=== PATIENT | male | born 1955 | race Hispanic/Latino ===

== ENCOUNTER 2016-07-10 15:21 | Emergency (ER) | payer OTHER ==
[2016-07-10 15:44] LABS: Urine Drugs of Abuse Note Disclamer
[2016-07-10 15:57] LABS: Bilirubin,Urine NEG (Negative); Blood,Urine LG (Negative); Ketones,Urine NEG (Negative); Leukocyte Esterase,Urine NEG (Negative); Mucus,Urine FEW /HPF; Nitrite,Urine NEG (Negative); Urobilinogen,Urine < 2.0 mg/dL (<2.0)
--- NOTE | 2016-07-10 16:14 | Emergency Department Report ---
HPI - General Chief Complaint: Overdose Time Seen by Provider: 07/10/16 15:56 - HPI HPI: This is a 61-year-old male who presents to the emergency department by EMS from home after the patient took at least 5 Ambien, mixed with [place] Escamilla, with the intent of harming himself. He texted his son and daughter and said goodbye and admitted that he was trying to harm himself. The patient is currently drowsy with some slurred speech and is a poor historian. There is no diagnosed psychiatric history. The patient has been retired for a few years and the son says that he has been dealing with a girlfriend leaving him and he has "has too much time to think about it." The son says that the patient has some past medical history of cancer "somewhere." He also has a history of alcohol abuse and was considered to be an alcoholic in the past but may still drink daily, they are unsure. The previous alcohol abuse is low to some "liver problems." ED Past Medical Hx - Past Medical History Additional medical history: IRVIN - Surgical History Additional Surgical History: IRVIN - Social History Smoking Status: Current Every Day Smoker Substance Use Type: Alcohol - Medications Home Medications: Home Medications Medication Instructions Recorded Confirmed Last Taken Type Zolpidem [Ambien] 10 mg PO QHS 07/10/16 07/10/16 07/10/16 History ED Review of Systems ROS: Stated complaint: OVERDOSE Other details as noted in HPI Comment: All other systems reviewed and negative Constitutional: other (drowsy). denies: chills, fever Eyes: denies: eye pain, eye discharge, vision change ENT: denies: ear pain, throat pain Respiratory: denies: cough, shortness of breath, wheezing Cardiovascular: denies: chest pain, palpitations Gastrointestinal: denies: abdominal pain, nausea, diarrhea Genitourinary: denies: urgency, dysuria Musculoskeletal: denies: back pain, joint swelling, arthralgia Skin: denies: rash, lesions Neurological: confusion. denies: headache, weakness, paresthesias Physical Exam - Physical Exam Vital Signs: Vital Signs 07/10/16 07/10/16 07/10/16 15:16 15:17 15:18 Pulse Rate 88 89 Respiratory 12 24 Rate Blood Pressure 116/73 116/73 116/73 O2 Sat by Pulse 96 96 97 Oximetry 07/10/16 07/10/16 07/10/16 15:20 15:22 15:24 Pulse Rate 88 88 87 Respiratory 24 15 9 L Rate Blood Pressure O2 Sat by Pulse 97 97 98 Oximetry 07/10/16 07/10/16 07/10/16 15:26 15:28 15:30 Pulse Rate 87 91 H 91 H Respiratory 24 12 18 Rate Blood Pressure 107/75 O2 Sat by Pulse 97 97 95 Oximetry 07/10/16 07/10/16 07/10/16 15:32 15:34 15:36 Pulse Rate 89 90 90 Respiratory 15 24 19 Rate Blood Pressure 107/75 107/75 107/75 O2 Sat by Pulse 96 97 97 Oximetry 07/10/16 07/10/16 07/10/16 15:38 15:40 15:48 Pulse Rate 92 H 93 H Respiratory 26 H 22 22 Rate Blood Pressure 107/75 107/75 O2 Sat by Pulse 91 96 96 Oximetry Physical Exam: GENERAL: The patient appears drowsy versus intoxicated. HEENT: Normocephalic. Atraumatic. Extraocular motions are intact. Patient has moist mucous membranes. Pupils equal reactive to light. NECK: Supple. Trachea is midline. CHEST/LUNGS: Clear to auscultation. There is no respiratory distress noted. HEART/CARDIOVASCULAR: Regular. There is no tachycardia. There is no gallop rub or murmur. ABDOMEN: Abdomen is soft, nontender. Patient has normal bowel sounds. There is no abdominal distention. SKIN: There is no rash. There is no edema. There is no diaphoresis. NEURO: Patient is awake but appears confused versus intoxicated. There is some slurring of his speech. Patient unable to answer all of his questions. Withdraws to painful stimuli. Follows some commands. MUSCULOSKELETAL: There is no tenderness or deformity. There is no limitation range of motion. There is no evidence of acute injury. ED Course Vital Signs 07/10/16 07/10/16 07/10/16 15:16 15:17 15:18 Pulse Rate 88 89 Respiratory 12 24 Rate Blood Pressure 116/73 116/73 116/73 O2 Sat by Pulse 96 96 97 Oximetry 07/10/16 07/10/16 07/10/16 15:20 15:22 15:24 Pulse Rate 88 88 87 Respiratory 24 15 9 L Rate Blood Pressure O2 Sat by Pulse 97 97 98 Oximetry 07/10/16 07/10/16 07/10/16 15:26 15:28 15:30 Pulse Rate 87 91 H 91 H Respiratory 24 12 18 Rate Blood Pressure 107/75 O2 Sat by Pulse 97 97 95 Oximetry 07/10/16 07/10/16 07/10/16 15:32 15:34 15:36 Pulse Rate 89 90 90 Respiratory 15 24 19 Rate Blood Pressure 107/75 107/75 107/75 O2 Sat by Pulse 96 97 97 Oximetry 07/10/16 07/10/16 07/10/16 15:38 15:40 15:48 Pulse Rate 92 H 93 H Respiratory 26 H 22 22 Rate Blood Pressure 107/75 107/75 O2 Sat by Pulse 91 96 96 Oximetry - Reevaluation(s) Reevaluation #1: The patient had an episode earlier in which he got up in his room, pulled out his IV, cough all of his clothes, exposed himself to staff but then was able to be redirected. He was cleaned up and a new IV was placed so he could receive IV fluids and thiamine and multivitamins. Patient was reevaluated again around 9:00 and the patient is much more awake and alert. He has normal understandable nonslurred speech and is seen walking around in his room and appears stable. At this point the patient appears to have sobered up from his alcohol intoxication and is wanting to leave the hospital. I told the patient that he had sent messages to his son and daughter stating that he plan to harm himself. He says that he only took 1 Ambien. I told him that the amount of Ambien was not the reason for his 1013 status but his intent to harm himself. The patient appears now to understand that he will have to remain in the hospital until he is either seen and cleared by one of the psychiatrists or he gets transferred to a psychiatric facility. 07/10/16 23:19 ED Medical Decision Making - Lab Data Result diagrams: 07/10/16 15:51 07/10/16 15:51 - EKG Data -: EKG Interpreted by Me EKG shows normal: sinus rhythm, axis, intervals, QRS complexes (Q waves to the septal leads), ST-T waves Rate: normal - EKG Data When compared to previous EKG there are: previous EKG unavailable Interpretation: other (Q waves to the septal leads) - Radiology Data Radiology results: report reviewed CT of the head does not show any acute process including no hemorrhage, mass, shift, diffuse edema or skull fracture. - Medical Decision Making 61-year-old male presents to the emergency department after texting family saying that he was going to overdose on Ambien, mixed with alcohol. The patient does have a history of alcohol abuse. He presents with some altered mental status and slurred speech and is a poor historian at first. The son was bedside and says that he received the text message. The patient had labs and a CT of the head done. CT did not show any bleed, shift, mass or any acute process. The labs were mostly unremarkable except for a blood alcohol level of 0.2. At one point the patient tore out his IV and removed all of his clothes and was acting appropriate. He was able to be redirected, he was cleaned up, given a new IV. A few hours after this, the patient appeared much more sober. He no longer had any slurred speech. He was seen ambulatory in the emergency department and appeared stable. However at this point the patient did not want to be in the emergency department any longer and did not understand why we would not discharge him. I explained to him the concern for his well-being secondary to his previous suicidal threats and/or ideations and that he has been made a 1013. The rest of the patient's labs are unremarkable. Vital signs been stable throughout his ED course. At this point the patient is medically cleared for psychiatric placement and crisis therapist has been contacted to assist. - Differential Diagnosis alcohol intoxication, depression, schizophrenia, bipolar Critical Care Time: No Critical care attestation.: If time is entered above; I have spent that time in minutes in the direct care of this critically ill patient, excluding procedure time. ED Disposition Clinical Impression: Suicidal ideations Alcohol intoxication Qualifiers: Complication of substance-induced condition: uncomplicated Qualified Code(s): F10.920 - Alcohol use, unspecified with intoxication, uncomplicated Disposition: DC/TX PSY HOSP/PSY UNIT Is pt being admited?: No Condition: Stable Referrals: PRIMARY CARE, [Primary Care Provider] - 3-5 Days Time of Disposition: 00:16
[2016-07-10 16:22] LABS: Basophils % (Auto) 0.5 % (0.0-1.8); Eosinophils % (Auto) 3.6 % (0.0-4.3); Hematocrit 43.3 % (35.5-45.6); Hemoglobin 14.6 gm/dl (11.8-15.2); Mean Corpuscular HGB Conc 34 % (32-34); Mean Corpuscular Hemoglobin 34 pg (28-32); Mean Corpuscular Volume 101 fl (84-94); Platelet Count 132 K/mm3 (140-440); White Blood Count 6.5 K/mm3 (4.5-11.0)
[2016-07-10 16:29] LABS: Anion Gap 19 mmol/L; BUN/Creatinine Ratio 31.66; Blood Urea Nitrogen 19 mg/dL (9-20); Calcium 9.2 mg/dL (8.4-10.2); Carbon Dioxide 25 mmol/L (22-30); Chloride 106.3 mmol/L (98-107); Glucose 88 mg/dL (75-100); Potassium 4.2 mmol/L (3.6-5.0); Sodium 146 mmol/L (137-145)
[2016-07-10 16:59] LABS: Alanine Aminotransferase 28 units/L (7-56); Albumin 4.1 g/dL (3.9-5); Albumin/Globulin Ratio 1.3 %; Alkaline Phosphatase 106 units/L (35-129); Bilirubin,Direct < 0.2 mg/dL (0-0.2); Total Protein 7.3 g/dL (6.3-8.2)
[2016-07-10] MEDS ORDERED: VITAMIN B-1 100 MG, FOLVITE 1 MG, INFUVITE 10 ML in NACL 0.9% 1000 ML 1,000 ML IV ONE (17:56)
--- NOTE | 2016-07-10 23:48 | Cat Scan Report ---
FINAL REPORT PROCEDURE: CT HEAD/BRAIN WO CON TECHNIQUE: Computerized tomography of the head was performed without contrast material. HISTORY: AMS COMPARISON: No prior studies are available for comparison. FINDINGS: Skull and scalp: Normal. Paranasal sinuses: Normal. Ventricles and subarachnoid spaces: There is mild central and cortical atrophy. There is no hydrocephalus or asymmetry.. Cerebrum: No evidence of hemorrhage, acute infarction or mass . Cerebellum and brainstem: No evidence of hemorrhage, acute infarction or mass. Vasculature: Normal. Comments: None. IMPRESSION: There is no acute intracranial abnormality.
[2016-07-11 07:31] VITALS: BP 135/66
== END 2016-07-11 07:31 ==
LOC: ED 15:21 → EEVIPCON 15:21 → ED 07-11 07:31
DX: R45.851 Suicidal ideations (principal); F10.920 Alcohol use, unspecified with intoxication, uncomplicated; F17.200 Nicotine dependence, unspecified, uncomplicated
CPT/HCPCS: 36415; 70450; 80048; 80074; 80307; 81001; 84443; 84484; 85025; 93005; 93010; 96365; 96366; 99285; G0480; J3411; J7030; 80320

== ENCOUNTER 2016-08-21 12:50 | Observation (INO) | payer OTHER ==
[~2016-08-21 12:50] MED LIST: ANCEF/STERILE WATER 2 GM/20 ML 2 GM/20 ML SYRINGE IV NR
--- NOTE | 2016-08-21 13:54 | Anesthesia Consultation ---
Anesthesia Consult and Med Hx Date of service: 08/21/16 - Airway Anesthetic Teeth Evaluation: Edentulous ROM Head & Neck: Adequate Mental/Hyoid Distance: Adequate Mallampati Class: Class I Intubation Access Assessment: Good - Pulmonary Exam CTA: Yes - Cardiac Exam Cardiac Exam: RRR - Pre-Operative Health Status ASA Pre-Surgery Classification: ASA3 Proposed Anesthetic Plan: General - Pre-Anesthesia Comment Pre-Anesthesia Comments: 2/6 systolic murmur - Pulmonary Hx Smoking: Yes (1 PPD X 45 YRS) Hx Sleep Apnea: No (GILMAR PRE SCREEN HIGH RISK) - Cardiovascular System Hx Hypertension: No Hx Coronary Artery Disease: No Hx Angina: No - Central Nervous System Hx Psychiatric Problems: Yes (SUCIDE ATTEMPT 07/10/16 WITH OVERDOSE) - Endocrine Hx Insulin Dependent Diabetes: No Hx Non-Insulin Dependent Diabetes: No - Hematic Hx Anemia: Yes (NOT RECENT) - Other Systems Hx Alcohol Use: Yes (ALCOHOL ABUSE- STILL DRINKING) 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 Echo shows mod to severe mitral regurgitation. Prior cath was negative for CAD.
--- NOTE | 2016-08-21 13:55 | Anesthesia Day of Surgery ---
Anesthesia Day of Surgery - Day of Surgery Patient Examined: Yes Patient H&P Reviewed: Yes Patient is NPO: Yes Cardiac Clearance: Yes
[2016-08-21] MEDS ORDERED: LACTATED RINGERS 1,000 ML IV SCH (14:00)
[2016-08-21] MEDS ORDERED: VERSED IV NR (14:00)
[2016-08-21] MEDS ORDERED: PEPCID PO NR (14:00)
[2016-08-21] MEDS ORDERED: PERCOCET 5/325 PO PRN ×2 (14:01→14:47)
[2016-08-21] MEDS ORDERED: ZOFRAN IV PRN ×2 (14:01→14:47)
[2016-08-21 14:03] LABS: Eosinophils % (Auto) 8.1 % (0.0-4.3); Mean Corpuscular HGB Conc 33 % (32-34); Mean Corpuscular Hemoglobin 34 pg (28-32); Mean Corpuscular Volume 103 fl (84-94); Platelet Count 110 K/mm3 (140-440); Red Blood Count 4.09 M/mm3 (3.65-5.03); Red Cell Distribution Width 14.1 % (13.2-15.2); White Blood Count 4.2 K/mm3 (4.5-11.0)
[2016-08-21] MEDS ORDERED: XYLOCAINE MPF 2% ONE (14:38)
[2016-08-21] MEDS ORDERED: DIPRIVAN 10 MG/ML IV ONE (14:38)
[2016-08-21] MEDS ORDERED: SUBLIMAZE ONE (14:38)
[2016-08-21 14:40] LABS: Anion Gap TNR mmol/L; BUN/Creatinine Ratio TNR; Blood Urea Nitrogen TNR mg/dL (9-20); Carbon Dioxide TNR mmol/L (22-30); Chloride TNR mmol/L (98-107); Potassium TNR mmol/L (3.6-5.0); Sodium TNR mmol/L (137-145)
[2016-08-21 14:41] LABS: Alanine Aminotransferase TNR units/L (7-56); Albumin TNR g/dL (3.9-5); Albumin/Globulin Ratio TNR %; Alkaline Phosphatase TNR units/L (35-129); Bilirubin,Total TNR mg/dL (0.1-1.2); Calcium TNR mg/dL (8.4-10.2); Glucose TNR mg/dL (75-100); Total Protein TNR g/dL (6.3-8.2)
[2016-08-21] MEDS ORDERED: NACL 0.9% IR PRN (14:47)
[2016-08-21] MEDS ORDERED: AMBIEN PO PRN (14:47)
--- NOTE | 2016-08-21 14:47 | Post Operative Note ---
Date of procedure: 08/21/16 Pre-op diagnosis: hematuria bladder cancer Post-op diagnosis: same Findings: Large tumor Procedure: Operative note Preoperative diagnosis bladder tumor Postoperative diagnosis the same Procedure Cystoscopy retrograde. There is resection of multifocal bladder tumors Surgeon Dr Nanda Fang. Findings This is a patient who presented with gross hematuria and clots. He had a mass on CT scan Procedure Patient brought to the operating room placed on the operating table. Following the induction of anesthesia placed in lithotomy position prepped and appears to fashion. Cystoscopy showed a multifocal tumors throughout the posterior and lateral wall of the bladder. The trigone was spared. The bladder was 2-3+ trabeculated retrograde showed some narrowing with the vessels were crossing but on fluoroscopy and did not see a persistent filling defect. It was some questionable area at the junction of the mid and distal right ureter. At that point we filled it up more and it looked like it drained freely. The resectoscope 24 Japanese was inserted Tumor anterior wall was resected. This was resected down to capsular fibers as noted on cystoscopy. The large tumor was removed and then smaller tumors were circumferentially resected. Hemostasis was excellent. Patient procedure welland bleeding estimated blood loss less than 50 mL Per to recovery room with a 22 three-way catheter stable condition thank you Anesthesia: TONEA Surgeon: MANDIE VALE Estimated blood loss: 50-100ml Pathology: list (bladder) Specimen disposition: to lab Condition: stable Disposition: PACU
[2016-08-21] MEDS ORDERED: D5W/0.45% NACL/KCL 20 MEQ 20 MEQ/1,000 ML BAG IV SCH (15:00)
[2016-08-21 15:17] LABS: Alanine Aminotransferase 21 units/L (7-56); Albumin 3.4 g/dL (3.9-5); Albumin/Globulin Ratio 1.5 %; Alkaline Phosphatase 98 units/L (35-129); Anion Gap 15 mmol/L; Blood Urea Nitrogen 17 mg/dL (9-20); Calcium 7.9 mg/dL (8.4-10.2); Carbon Dioxide 23 mmol/L (22-30); Chloride 101.1 mmol/L (98-107); Glucose 90 mg/dL (75-100); Potassium 3.9 mmol/L (3.6-5.0); Sodium 135 mmol/L (137-145); Total Protein 5.6 g/dL (6.3-8.2)
[2016-08-21] MEDS ORDERED: DECADRON ONE (15:23)
[2016-08-21] MEDS ORDERED: ZOFRAN ONE (15:23)
[2016-08-21] MEDS ORDERED: ePHEDrine SULFATE ONE (15:44)
[2016-08-21] MEDS ORDERED: WATER FOR IRRIG STERILE IR ONE (16:48)
[2016-08-21] MEDS ORDERED: SORBITOL-MANNITOL IRRIG IR ONE (16:48)
[2016-08-21] MEDS: DILAUDID IV PRN ×2 (17:00→17:18)
--- NOTE | 2016-08-21 17:57 | Post Anesthesia Evaluation ---
- Post Anesthesia Evaluation Patient Participated: Yes Airway Patent: Yes Stable Respiratory Function: Yes Nausea/Vomiting: No Temp > 96.8F: Yes Pain Manageable: Yes Adequeate Hydration: Yes Anesthesia Complications: No
[2016-08-21] MEDS ORDERED: NACL 0.9% 2,000 ML ONE ×2 (18:55)
[2016-08-21] MEDS ORDERED: AMBIEN PO SCH (22:00)
[2016-08-21] MEDS: ANCEF/NS 1 GM/50 ML 1 GM/50 ML BAG IV SCH (22:42)
[2016-08-21] MEDS: COLACE PO SCH (22:42)
[2016-08-21] MEDS: NACL 0.9% IR SCH (22:50)
[2016-08-22] MEDS: NACL 0.9% IR SCH (05:01)
[2016-08-22] MEDS: ANCEF/NS 1 GM/50 ML 1 GM/50 ML BAG IV SCH (05:54)
[2016-08-22 06:29] LABS: Basophils % (Auto) 0.1 % (0.0-1.8); Eosinophils % (Auto) 0.2 % (0.0-4.3); Hematocrit 38.3 % (35.5-45.6); Hemoglobin 12.6 gm/dl (11.8-15.2); Mean Corpuscular HGB Conc 33 % (32-34); Mean Corpuscular Hemoglobin 34 pg (28-32); Mean Corpuscular Volume 102 fl (84-94); Platelet Count 111 K/mm3 (140-440); Red Blood Count 3.76 M/mm3 (3.65-5.03); White Blood Count 9.2 K/mm3 (4.5-11.0)
[2016-08-22 06:39] LABS: Anion Gap 15 mmol/L; Blood Urea Nitrogen 21 mg/dL (9-20); Calcium 8.5 mg/dL (8.4-10.2); Carbon Dioxide 25 mmol/L (22-30); Chloride 98.3 mmol/L (98-107); Glucose 158 mg/dL (75-100); Potassium 4.7 mmol/L (3.6-5.0); Sodium 134 mmol/L (137-145)
--- NOTE | 2016-08-22 07:33 | Admit Criteria Form ---
Admission Criteria Documentation: AMBULATORY SURGERY EXCEPTION CRITERIA Ambulatory Surgery Exception Criteria ( Place 'X' for any and all applicable criteria): Surgery or procedure performed on ambulatory basis may require inpatient stay for[A] ANY ONE of the following(1)(2)(3)(4)(5)(6)(7)(8)(9): [X] I. A preoperative situation, condition, or finding that warrants inpatient stay as indicated by ANY ONE of the following: [] a) Inpatient care needed because of severity of a disease or condition rather than the surgery (eg, severe cardiac or respiratory disease, severe infection) (15) (16 ) (17) (18) [] b) Emergent procedure (eg, angioplasty for acute ischemia)(19) [] c) Complex surgical approach or situation as indicated by ANY ONE of the following(3): [] i) Open approach needed instead of usual endoscopic, transcatheter, or other less invasive procedure [] ii) Difficult approach because of previous operation [] iii) Airway monitoring required after open neck procedures(20)(21) [] iv) Large mass requiring unusually extensive dissection [] v) Additional complicating feature requiring inpatient care (eg, drain management)(22(23): [X] d) Major surgery in a pt with high anesthetic risk as indicated by ANY ONE of the following (2)(3)(5)(7)(8): [X] i) ASA risk class III or higher (severe systemic disease impairing function) [D] [] ii) Advanced age (eg, older than 85 years)(14)(24) [] iii) Symptomatic heart failure(25) [] iv) Symptomatic asthma or COPD(8)(21) [] v) Morbid obesity with hemodynamic or respiratory problems(20)( 21)(26)(27) [] vi) Obstructive sleep apnea(20)(21) [] vii) Former premature infants who are younger than 60 weeks [] viii) High risk for severe postoperative abnormalities (eg, severe postoperative hypocalcemia after parathyroidectomy for severe hyperparathyroidism)(27)( 28) [] ix) Unstable angina(25) [] e) Drug-related risk requiring inpatient stay as indicated by ANY ONE of the following(5)(10)(14)(32)(33) [] i) Procedure requires discontinuing drugs or other therapy (eg , antiarrhythmic medication, antiseizure medication), which necessitates inpatient observation or treatment.(18)(31) [] ii) Major surgery and high risk drug use as indicated by ANY ONE of the following: [] 1) Active abuse of cocaine or similar drug [] 2) Monoamine oxidase inhibitor use [] 3) Other drug identified as posing risk [] f) Inadequate outpatient care situation as indicated by ANY ONE of the following(5)(10)(14)(32)(33) [] i) Patient lives remote from medical facility and procedure has urgent complication potential, and temporary nearby residence cannot be arranged [] ii) Patient will have postprocedure incapacitation and inadequate assistance at home, or alternative level of care cannot be arranged. [] iii) Patient will have long general anesthesia or procedure side effect resolution time, and competent person to stay with patient on first postoperative night at home or alternative level of care cannot be arranged. []iv) Other inadequate outpatient situation that cannot be handled by other means [] II. A perioperative event, condition, or finding that warrants inpatient stay as indicated by ANY ONE of the following (1)(2)(3): [] a) Inadequate physiologic recovery: cardiovascular, respiratory, or hemodynamic status not normal or near preoperative baseline(18) [] b) Hemodynamic instability [] c) Patient not alert with near normal or baseline mental status [] d) Temperature not normal or as expected and not appropriate for outpatient treatment of condition [] e) Ambulatory or appropriate activity level status not yet achieved post procedure [E](34)(35)(36) [] f) Operative site not appropriate (eg, unexpected or excessive drainage or bleeding) [] g) Postoperative effects not resolved or adequately managed (eg, significant pain or vomiting not appropriate for outpatient or next level of care)(10)(12) [] h) Complicating features requiring inpatient care as indicated by ANY ONE of the following(37): [] i) Severe complications of procedure (eg, bowel injury, airway compromise, vascular injury,severe hemorrhage) [] ii) Extensive (eg, dissection far beyond usual scope of procedure ) or prolonged (eg, 120 minutes beyond usual) surgery needed requiring inpatient postoperative care [] iii) Conversion to an open or complex procedure that requires inpatient care (eg, open vs laparoscopic cholecystectomy, abdominal vs vaginal hysterectomy)(38) [] iv) Comorbid condition or test result identified during or post procedure that requires inpatient care (7) [] v) Malignant hyperthermia(30) [] vi) Other complicating feature requiring inpatient care(22)(23) Inpatient stay may be needed until ALL of the following are present (1)(2)(3)(4) (5)(6)(10)(14)(33)(40): []a) Physiologic recovery: cardiovascular, respiratory, and hemodynamic status normal or near preoperative baseline []b) Hemodynamic stability []c) Patient alert, with near normal or baseline mental status []d) Temperature appropriate: patient afebrile or temperature appropriate for outpt treatment of condition []e) Activity level appropriate: ambulatory or appropriate activity level post procedure []f) Operative site appropriate as indicated by ALL of the following: []i) Site dry or with expected drainage []ii) Any blood noted is as expected for procedure. []g) Postoperative effects resolved or managed as indicated by ALL of the following: []i) Pain management appropriate for outpatient (or next level of) care(10) []ii) Minimal nausea and vomiting: if present, successfully treated with oral medication(12) []iii) Headache, dizziness, or drowsiness (if present) are mild. []h) Voiding status acceptable as indicated by ANY ONE of the following: []i) Voiding spontaneously []ii) No voiding but instructions given for follow-up in 6 to 8 hours []iii) Urinary catheter in place, and instructions given for follow-up []i) Complicating features requiring inpatient care manageable at a lower level of care(37) []j) Comorbid conditions manageable at a lower level of care(37) The original [employer] content created by [employer] has been revised. The portions of the content which have been revised are identified through the use of italic text or in bold, and [employer] has neither reviewed nor approved the modified material. All other unmodified content is copyright [employer]. Please see references footnoted in the original [employer] edition 2016
--- NOTE | 2016-08-22 09:03 | Fluoroscopy Report ---
CYSTOGRAM STATIC, ONE VIEW History: Bladder tumor Findings: Fluoroscopy was provided by radiology during cystogram by Dr. Dunlap. 2 fluoroscopic images were captured which demonstrates contrast within the bladder. There is no evidence for extravasation. Bladder biopsy was performed. Please correlate with the procedural report. Impression: No evidence for extravasation of contrast from the bladder.
--- NOTE | 2016-08-22 09:06 | Fluoroscopy Report ---
RETROGRADE PYELOGRAM: History: Bladder tumor. There is adequate filling of the ureters and intrarenal collecting systems with no filling defects or anatomic abnormalities identified. Impression: Unremarkable exam.
[2016-08-22] MEDS: COLACE PO SCH (10:52)
--- NOTE | 2016-08-22 12:16 | Progress Note ---
Assessment and Plan Looks great Urine clear catheter irrigates freely Home with Angulo Pathology pending Subjective Date of service: 08/22/16 Principal diagnosis: bladder cancer Objective - Constitutional Vitals: Vital Signs - 12hr 08/22/16 08/22/16 08/22/16 01:11 05:51 07:00 Temperature 98.7 F 98.7 F 97.7 F Pulse Rate [ 71 67 80 Brachial] Respiratory 20 20 18 Rate Blood Pressure 105/54 114/62 108/60 [Left Arm] O2 Sat by Pulse 100 97 98 Oximetry 08/22/16 11:43 Temperature Pulse Rate [ Brachial] Respiratory Rate Blood Pressure [Left Arm] O2 Sat by Pulse 98 Oximetry General appearance: Present: no acute distress - Neck Neck: supple - Respiratory Respiratory effort: normal Extremities: no ischemia - Gastrointestinal General gastrointestinal: Present: soft, non-tender - Labs CBC & Chem 7: 08/22/16 06:07 08/22/16 06:07 Labs: Abnormal lab results 08/21/16 08/21/16 08/22/16 Range/Units 13:40 14:40 06:07 WBC 4.2 L (4.5-11.0) K/mm3 MCV 103 H 102 H (84-94) fl MCH 34 H 34 H (28-32) pg Plt Count 110 L 111 L (140-440) K/mm3 Lymph % (Auto) 9.2 L (13.4-35.0) % [place] % (Auto) 13.6 H (0.0-7.3) % Eos % (Auto) 8.1 H (0.0-4.3) % Lymph # 1.1 L 0.8 L (1.2-5.4) K/mm3 Seg Neutrophils % 83.6 H (40.0-70.0) % Sodium 135 L (137-145) mmol/L BUN (9-20) mg/dL Creatinine 0.4 L (0.8-1.5) mg/dL Glucose (75-100) mg/dL Calcium 7.9 L (8.4-10.2) mg/dL Total Protein 5.6 L (6.3-8.2) g/dL Albumin 3.4 L (3.9-5) g/dL 08/22/16 Range/Units 06:07 WBC (4.5-11.0) K/mm3 MCV (84-94) fl MCH (28-32) pg Plt Count (140-440) K/mm3 Lymph % (Auto) (13.4-35.0) % [place] % (Auto) (0.0-7.3) % Eos % (Auto) (0.0-4.3) % Lymph # (1.2-5.4) K/mm3 Seg Neutrophils % (40.0-70.0) % Sodium 134 L (137-145) mmol/L BUN 21 H (9-20) mg/dL Creatinine 0.7 L D (0.8-1.5) mg/dL Glucose 158 H (75-100) mg/dL Calcium (8.4-10.2) mg/dL Total Protein (6.3-8.2) g/dL Albumin (3.9-5) g/dL
--- NOTE | 2016-08-22 12:17 | Discharge Summary ---
Short Stay Discharge Plan Activity: other (no straining) Weight Bearing Status: Full Weight Bearing Diet: regular Special Instructions: other Durable Medical Equipment Needed Upon Discharge: other (home with) Follow up with: PRIMARY CAREMD [Primary Care Provider] - 7 Days MANDIE VALE MD [Staff Physician] - 7 Days
[2016-08-22 17:09] VITALS: BP 110/66
== END 2016-08-22 14:00 | disposition home or self-care (01) ==
LOC: OR 12:50 → 3A 14:47 → 2B-SURG 20:01
PROVIDERS: ADMIT Urology; ATTEND Urology
DX: C67.4 Malignant neoplasm of posterior wall of bladder (principal); C67.2 Malignant neoplasm of lateral wall of bladder; F17.210 Nicotine dependence, cigarettes, uncomplicated; Z85.89 Personal history of malignant neoplasm of other organs and systems
CPT/HCPCS: 36415; 52240; 74420; 74430; 80048; 80053; 85025; 88112; 88305; 96365; 96375; A4217; G0378; J0690; J1100; J1170; J2250; J2405; J2704; J3010; J7120; Q9967

== ENCOUNTER 2017-01-01 10:22 | Day surgery (SDC) | payer OTHER ==
[~2017-01-01 10:22] MED LIST changes: -ANCEF/STERILE WATER 2 GM/20 ML 2 GM/20 ML SYRINGE IV NR; +PEPCID IV NR; +SORBITOL-MANNITOL IRRIG IR ONE; +VERSED IV NR; +WATER FOR IRRIG STERILE IR ONE
[2017-01-01] MEDS ORDERED: SUBLIMAZE ONE (10:53)
[2017-01-01] MEDS ORDERED: DIPRIVAN 10 MG/ML IV ONE ×2 (10:53→12:52)
[2017-01-01] MEDS ORDERED: XYLOCAINE MPF 2% ONE ×2 (10:59→12:52)
[2017-01-01] MEDS ORDERED: NACL BACTERIOSTATIC INFILTRATI ONE (11:38)
--- NOTE | 2017-01-01 11:48 | Anesthesia Day of Surgery ---
Anesthesia Day of Surgery - Day of Surgery Patient Examined: Yes Patient H&P Reviewed: Yes Patient is NPO: Yes Cardiac Clearance: Yes
--- NOTE | 2017-01-01 11:48 | Anesthesia Consultation ---
Anesthesia Consult and Med Hx Date of service: 01/01/17 - Airway Anesthetic Teeth Evaluation: Edentulous ROM Head & Neck: Adequate Mental/Hyoid Distance: Adequate Mallampati Class: Class I Intubation Access Assessment: Good - Pulmonary Exam CTA: Yes - Cardiac Exam Cardiac Exam: RRR - Pre-Operative Health Status ASA Pre-Surgery Classification: ASA3 Proposed Anesthetic Plan: General - Pre-Anesthesia Comment Pre-Anesthesia Comments: 03/18 holosystolic murmur - Pulmonary Hx Smoking: Yes (1 PPD X 45 YRS) Hx Asthma: No COPD: Yes (NO MEDS) Hx Sleep Apnea: No (GILMAR PRE SCREEN HIGH RISK) - Cardiovascular System Hx Hypertension: No Hx Coronary Artery Disease: No Hx Heart Murmur: Yes (mitral regurgitation) - Central Nervous System Hx Psychiatric Problems: Yes - Endocrine Hx End Stage Renal Disease: No Hx Insulin Dependent Diabetes: No Hx Non-Insulin Dependent Diabetes: No - Hematic Hx Anemia: Yes (NOT RECENT) - Other Systems Hx Alcohol Use: Yes (ALCOHOL ABUSE- STILL DRINKING) Hx Cancer: Yes (cancer mass removed from right arm) - Additional Comments Anesthesia Medical History Comments: Cardiac clearance from 10/2016 is on chart. ECHO shows mod to severe mitral insuficiency. EF 60 % by cath 2013. Coronaries OK.
[2017-01-01] MEDS ORDERED: ZOFRAN IV PRN (11:49)
[2017-01-01] MEDS ORDERED: PERCOCET 5/325 PO PRN (11:49)
[2017-01-01] MEDS ORDERED: DILAUDID IV PRN (11:49)
[2017-01-01] MEDS ORDERED: LACTATED RINGERS 1,000 ML IV SCH (12:00)
[2017-01-01 12:09] LABS: Basophils % (Auto) 0.8 % (0.0-1.8); Hematocrit 45.6 % (35.5-45.6); Hemoglobin 15.3 gm/dl (11.8-15.2); Mean Corpuscular HGB Conc 34 % (32-34); Mean Corpuscular Hemoglobin 34 pg (28-32); Mean Corpuscular Volume 100 fl (84-94); Platelet Count 118 K/mm3 (140-440); Red Blood Count 4.56 M/mm3 (3.65-5.03); Red Cell Distribution Width 13.8 % (13.2-15.2); White Blood Count 6.1 K/mm3 (4.5-11.0)
[2017-01-01] MEDS ORDERED: DILAUDID ONE (12:51)
[2017-01-01] MEDS ORDERED: VERSED IV NR (13:00)
[2017-01-01] MEDS ORDERED: ANCEF/STERILE WATER 2 GM/20 ML 2 GM/20 ML SYRINGE IV NR (13:00)
[2017-01-01] MEDS ORDERED: SORBITOL-MANNITOL IRRIG IR ONE (13:17)
[2017-01-01] MEDS ORDERED: WATER FOR IRRIG STERILE IR ONE (13:20)
[2017-01-01] MEDS ORDERED: ZOFRAN ONE (13:25)
[2017-01-01] MEDS ORDERED: LASIX ONE (13:39)
--- NOTE | 2017-01-01 13:57 | Post Operative Note ---
Date of procedure: 01/01/17 Pre-op diagnosis: bladder cancer Post-op diagnosis: same Findings: erythema and very samall bt Procedure: cysto biopsies and turbt Anesthesia: GETA Surgeon: MANDIE VALE Estimated blood loss: minimal Pathology: list (bladder prostate) Specimen disposition: to lab Condition: stable Disposition: PACU
--- NOTE | 2017-01-01 13:58 | Discharge Summary ---
Short Stay Discharge Plan Activity: other (no straining ) Weight Bearing Status: Full Weight Bearing Diet: regular Special Instructions: other (inc fluids ) Durable Medical Equipment Needed Upon Discharge: other (teach agrawal care ) Follow up with: KAREN PANTOJA [Primary Care Provider] - 7 Days MANDIE VALE MD [Staff Physician] - 3 Days
--- NOTE | 2017-01-01 13:59 | Post Anesthesia Evaluation ---
- Post Anesthesia Evaluation Patient Participated: Yes Airway Patent: Yes Stable Respiratory Function: Yes Temp > 96.8F: Yes Pain Manageable: Yes Adequeate Hydration: Yes Anesthesia Complications: No
--- NOTE | 2017-01-01 14:09 | Operative Report ---
PREOPERATIVE DIAGNOSES: Bladder cancer, history of smoking. POSTOPERATIVE DIAGNOSES: Rule out CIS, small little papillary bladder tumor, rest of the tumors is gone. PROCEDURE: Cystoscopy, bladder biopsy, prostatic urethral biopsy, transurethral resection of bladder tumor. SURGEON: Chandler Dunlap MD ANESTHESIA: General. FINDINGS: This is a gentleman with a history of multifocal tumors, now presents for followup after an intravesical therapy. DESCRIPTION OF PROCEDURE: The patient brought to the operating room and placed on the operating table. Following induction of anesthesia, placed in lithotomy position, prepped and draped in usual sterile fashion. Cystourethroscopy showed a very trabeculated bladder. Biopsies of the erythematous areas in posterior wall and right lateral wall were carried out and the dome. Transurethral resection of small tumor was also carried out. Transurethral biopsy of the prostate was carried out. The patient tolerated the procedure well. Retrogrades were not repeated. A 22 coude catheter was easily inserted. The patient tolerated the procedure well. Family notified, no significant bleeding. Specimen sent to pathology, brought to recovery in stable condition. JOB# [id number]
[2017-01-01 17:37] VITALS: BP 129/86
== END 2017-01-01 15:49 | disposition home or self-care (01) ==
LOC: OR 10:22
PROVIDERS: ATTEND Urology
DX: C67.3 Malignant neoplasm of anterior wall of bladder (principal); C67.4 Malignant neoplasm of posterior wall of bladder; N40.0 Benign prostatic hyperplasia without lower urinary tract symptoms; I34.0 Nonrheumatic mitral (valve) insufficiency; I10 Essential (primary) hypertension; J44.9 Chronic obstructive pulmonary disease, unspecified; F17.210 Nicotine dependence, cigarettes, uncomplicated; Z85.828 Personal history of other malignant neoplasm of skin; Z82.49 Family history of ischemic heart disease and other diseases of the circulatory system
CPT/HCPCS: 36415; 52234; 85025; 88305; A4217; J0690; J1170; J1940; J2250; J2405; J2704; J3010; J7120; Q9967